=== PATIENT | female | born 1960 | race Caucasian/White ===

== ENCOUNTER 2016-04-15 13:58 | Outpatient (RCR) | payer MEDICARE, MEDICAID ==
[~2016-04-15 13:58] MED LIST: 00186-0372-20 IH; AMARYL 2MG T2 MG/TAB PO; ATARAX 25MG25 MG/TAB PO; BENTYL 20MG20 MG/TAB PO; CLARITIN 1010 MG/TAB PO; DILAUDID 4MG TAB4 MG PO; HCTZ 25MG TAB25 MG PO; JANUVIA 100MG100 MG PO; KLONOPIN 1MG1 MG PO; LASIX 20MG TABL20 MG PO; LEXAPRO20 MG PO; LIDODERM PATCH TP; OXY IR5 MG PO; PREDNISONE20 MG PO; PRINIVIL10 MG PO; PROTONIX 40MG T40 MG PO; PROVENTIL0.09 MG/A1 IH; ROXICODONE 55 MG/TAB PO; XIFAXAN550 MG PO
== END 2016-06-06 11:32 | disposition home or self-care (01) ==
LOC: WSPT 13:58
DX: M25.511 Pain in right shoulder (principal); M25.561 Pain in right knee; M25.562 Pain in left knee; G89.29 Other chronic pain
CPT/HCPCS: G8978-GP; G8979-GP; G8980-GP

== ENCOUNTER → 2016-05-05 | Outpatient (CLI) | payer MEDICARE, MEDICAID | LOC: MHCPAIN 10:50 | DX: G89.29 Other chronic pain (principal); M47.817 Spondylosis without myelopathy or radiculopathy, lumbosacral region; M79.661 Pain in right lower leg; M79.662 Pain in left lower leg | CPT/HCPCS: G0463 ==